=== PATIENT | female | born 1960 | race African-American/Black ===

== ENCOUNTER 2016-12-09 09:01 | Inpatient (IN) | payer MEDICAID, OTHER ==
[~2016-12-09] VITALS: Ht 170.2 cm; Wt 94.5 kg
[~2016-12-09 09:01] MED LIST: HYDR25TA PO; INSLAN SQ; INSNOV SQ; SIMV5TAB6 PO
[2016-12-09 09:50] LABS: BASOPHILS % (AUTO) 0.5 % (0.0-2.0); EOSINOPHILS % (AUTO) 2.3 % (1.0-6.0); HEMATOCRIT 37.5 % (36-46); HEMOGLOBIN 12.2 g/dL (12.0-16.0); LYMPHOCYTES # (AUTO) 3.2 K/uL (1.0-4.8); LYMPHOCYTES % (AUTO) 40.9 % (22.0-44.0); MEAN CORPUSCULAR HEMOGLOBIN 31.8 pg (26.0-34.0); MEAN CORPUSCULAR HGB CONC 32.5 G/dL (31.0-37.0); MEAN CORPUSCULAR VOLUME 98 fL (80-100); MONOCYTES % (AUTO) 12.4 % (2.0-9.0); NEUTROPHILS # (AUTO) 3.4 K/uL (1.8-7.7); NEUTROPHILS % (AUTO) 43.9 % (40.0-70.0); RED BLOOD CELL COUNT(AUTO) 3.83 MIL/uL (4.00-5.20); RED CELL DISTRIBUTION WIDTH 15.9 % (11.5-14.5); WHITE BLOOD COUNT (AUTO) 7.7 K/uL (4.5-11.0)
[2016-12-09 10:00] LABS: ANION GAP 6 mmol/L (8-16); CALCIUM, TOTAL 8.3 mg/dL (8.8-10.5); CARBON DIOXIDE 28 mmol/L (22-29); CHLORIDE 107 mmol/L (98-107); CREATININE 0.97 mg/dL (0.60-1.30); GLOMERULAR FILTR. RATE CALC > 60 mL/min (>60); POTASSIUM 3.8 mmol/L (3.5-5.1); SODIUM SERUM 141 mmol/L (136-145); UREA NITROGEN, BLOOD 22 mg/dL (7-18)
[2016-12-09 10:01] LABS: INR 1.3 (0.9-1.1); PROTHROMBIN TIME 13.8 SEC (9.4-11.6)
[2016-12-09 10:15] LABS: B-TYPE NATRIURETIC PEPTIDE 26 pg/mL (0-100)
[2016-12-09 10:20] LABS: PLATELET COUNT (AUTO) 78 K/uL (150-450)
[2016-12-09 10:21] LABS: RBC MORPHOLOGY COMMENT NORMAL RBC MORPH
[2016-12-09 10:25] LABS: ALANINE AMINOTRANSFERASE 162 U/L (12-78); ALBUMIN 1.9 g/dL (3.4-5.0); ASPARTATE AMINOTRANSFERASE 261 U/L (15-37); BILIRUBIN,TOTAL 1.7 mg/dL (0.1-1.0); CREATINE KINASE MB 2.1 ng/mL (0-5); CREATINE KINASE, TOTAL 368 U/L (26-192); TOTAL PROTEIN, SERUM 7.3 g/dL (6.4-8.2)
[2016-12-09] MEDS ORDERED: ONDANSETRON HCL 4 MG/2 ML VIAL IVP ONE (13:30)
[2016-12-09] MEDS ORDERED: MORPHINE SULFATE 4 MG/ML SYRINGE IVP ONE (13:30)
[2016-12-09] MEDS ORDERED: ACETAMINOPHEN 325 MG TABLET PO PRN (18:00)
[2016-12-09] MEDS ORDERED: SPIRONOLACTONE 50 MG TABLET PO SCH (18:00)
[2016-12-09] MEDS ORDERED: PANTOPRAZOLE SODIUM 40 MG DR TABLET PO SCH (18:00)
[2016-12-09 18:18] VITALS: BP 154/87
[2016-12-09] MEDS: FUROSEMIDE 20 MG TABLET PO SCH (20:15)
[2016-12-09] MEDS: DOCUSATE SODIUM 100 MG CAPSULE PO SCH (20:15)
[2016-12-09 20:59] VITALS: BP 157/70
[2016-12-09] MEDS ORDERED: INFLUENZA VIRUS VACCINE QVS 2016-17 (3YR+)/PF 60 MCG/0.5 ML SYRINGE IM ONE (22:45)
[2016-12-09] MEDS ORDERED: PNEUMOCOCCAL VACCINE POLYVALENT 0.5 ML VIAL [PPSV23] IM ONE (22:45)
[2016-12-09 23:22] VITALS: BP 143/75
[2016-12-10 04:11] VITALS: BP 140/72
[2016-12-10 06:11] LABS: ANION GAP 7 mmol/L (8-16); CARBON DIOXIDE 26 mmol/L (22-29); CHLORIDE 108 mmol/L (98-107); CREATININE 0.93 mg/dL (0.60-1.30); GLOMERULAR FILTR. RATE CALC > 60 mL/min (>60); POTASSIUM 3.9 mmol/L (3.5-5.1); SODIUM SERUM 141 mmol/L (136-145); UREA NITROGEN, BLOOD 18 mg/dL (7-18)
[2016-12-10 06:38] LABS: INR 1.4 (0.9-1.1); PROTHROMBIN TIME 14.4 SEC (9.4-11.6)
[2016-12-10 07:28] LABS: BASOPHILS # (AUTO) 0.04 K/uL (0.00-0.20); BASOPHILS % (AUTO) 0.6 % (0.0-2.0); EOSINOPHILS # (AUTO) 0.21 K/uL (0.00-0.70); EOSINOPHILS % (AUTO) 3.39 % (1.0-6.0); HEMATOCRIT 32.3 % (36-46); HEMOGLOBIN 10.9 g/dL (12.0-16.0); LYMPHOCYTES # (AUTO) 2.6 K/uL (1.0-4.8); LYMPHOCYTES % (AUTO) 41.9 % (22.0-44.0); MEAN CORPUSCULAR HEMOGLOBIN 32.7 pg (26.0-34.0); MEAN CORPUSCULAR HGB CONC 33.6 G/dL (31.0-37.0); MEAN CORPUSCULAR VOLUME 97 fL (80-100); MONOCYTES # (AUTO) 1.2 K/uL (0.1-1.0); MONOCYTES % (AUTO) 19.8 % (2.0-9.0); NEUTROPHILS # (AUTO) 2.1 K/uL (1.8-7.7); NEUTROPHILS % (AUTO) 34.3 % (40.0-70.0); PLATELET COUNT (AUTO) 60 K/uL (150-450); RED BLOOD CELL COUNT(AUTO) 3.32 MIL/uL (4.00-5.20); RED CELL DISTRIBUTION WIDTH 15.7 % (11.5-14.5); WHITE BLOOD COUNT (AUTO) 6.2 K/uL (4.5-11.0)
[2016-12-10 08:11] VITALS: BP 137/78
[2016-12-10] MEDS: DOCUSATE SODIUM 100 MG CAPSULE PO SCH ×2 (08:19→19:58)
[2016-12-10] MEDS: FUROSEMIDE 20 MG TABLET PO SCH ×2 (08:19→19:59)
[2016-12-10] MEDS ORDERED: DEXTROSE 50%-WATER 25 GM/50 ML SYRINGE IVP PRN (09:15)
[2016-12-10] MEDS ORDERED: ONDANSETRON HCL 4 MG/2 ML VIAL IVP PRN (09:15)
[2016-12-10] MEDS: ACETAMINOPHEN 325 MG TABLET PO PRN ×2 (10:41→19:58)
[2016-12-10] MEDS: LACTULOSE 20 GM/30 ML SOLUTION UDCUP PO SCH ×3 (10:42→23:49)
[2016-12-10 11:06] VITALS: BP 134/89
[2016-12-10 11:57] LABS: GLUCOSE,POINT OF CARE 172 MG/DL (70-110)
[2016-12-10] MEDS: INSULIN ASPART 100 UNITS/ML SQ PRN ×2 (12:20→20:04)
[2016-12-10 15:56] VITALS: BP 125/67
[2016-12-10 17:41] LABS: GLUCOSE,POINT OF CARE 136 MG/DL (70-110)
[2016-12-10 20:07] VITALS: BP 136/80
[2016-12-10 23:57] VITALS: BP 145/80
[2016-12-11 04:00] VITALS: BP 135/76
[2016-12-11 06:02] LABS: GLUCOSE COMMENT 1 Received Meds; GLUCOSE,POINT OF CARE 198 MG/DL (70-110)
[2016-12-11 06:07] LABS: GLUCOSE,POINT OF CARE 123 MG/DL (70-110)
[2016-12-11 07:30] VITALS: BP 140/86
[2016-12-11] MEDS: DOCUSATE SODIUM 100 MG CAPSULE PO SCH (08:35)
[2016-12-11] MEDS: LACTULOSE 20 GM/30 ML SOLUTION UDCUP PO SCH (08:35)
[2016-12-11] MEDS: FUROSEMIDE 20 MG TABLET PO SCH (08:35)
[2016-12-11] MEDS ORDERED: PANTOPRAZOLE SODIUM 40 MG DR TABLET PO SCH (09:00)
[2016-12-11 11:24] VITALS: BP 145/84
[2016-12-11] MEDS: INSULIN ASPART 100 UNITS/ML SQ PRN (11:34)
[2016-12-11 11:41] LABS: GLUCOSE COMMENT 1 Received Meds; GLUCOSE,POINT OF CARE 192 MG/DL (70-110)
[2016-12-11] MEDS ORDERED: GLIP5 PO (11:57)
[2016-12-11] MEDS ORDERED: SPIR50 PO (11:58)
[2016-12-11] MEDS ORDERED: FURO20 PO (11:58)
[2016-12-11] MEDS ORDERED: LACT30L PO (11:58)
== END 2016-12-11 13:00 | disposition home or self-care (01) | DRG 264 ==
LOC: EMS 09:02 → 6N 17:29
PROVIDERS: ADMIT Internal Medicine; ATTEND Internal Medicine
PROC: 3E0234Z Introduction of Serum, Toxoid and Vaccine into Muscle, Percutaneous Approach (ICD-10-PCS; 2016-12-10)
PROC: 0W9G3ZX Drainage of Peritoneal Cavity, Percutaneous Approach, Diagnostic (ICD-10-PCS; principal; 2016-12-11)
DX: K70.31 Alcoholic cirrhosis of liver with ascites (principal); E43 Unspecified severe protein-calorie malnutrition; D69.6 Thrombocytopenia, unspecified; K72.90 Hepatic failure, unspecified without coma; I51.9 Heart disease, unspecified; R79.1 Abnormal coagulation profile; I10 Essential (primary) hypertension; E78.00 Pure hypercholesterolemia, unspecified; E11.9 Type 2 diabetes mellitus without complications; F17.210 Nicotine dependence, cigarettes, uncomplicated; Z68.32 Body mass index [BMI] 32.0-32.9, adult; Z79.899 Other long term (current) drug therapy; Z79.4 Long term (current) use of insulin; Z90.49 Acquired absence of other specified parts of digestive tract; Z88.6 Allergy status to analgesic agent; Z91.19 Patient's noncompliance with other medical treatment and regimen; Z82.49 Family history of ischemic heart disease and other diseases of the circulatory system; Z23 Encounter for immunization
CPT/HCPCS: 49083; 76700; 76942; 82962; 87070; 87205; 88108; 88341; 88342; 90471; 93005; 99285; G0480; J2270; J2405

== ENCOUNTER 2017-02-11 16:39 | Emergency (ER) | payer MEDICAID, OTHER ==
[~2017-02-11] VITALS: Ht 170.2 cm; Wt 75.0 kg
[~2017-02-11 16:39] MED LIST changes: +FURO20 PO; +GLIP5 PO; -HYDR25TA PO; -INSLAN SQ; -INSNOV SQ; +LACT30L PO; -SIMV5TAB6 PO; +SPIR50 PO
[2017-02-11] MEDS ORDERED: INSLAN SQ (16:54)
[2017-02-11] MEDS ORDERED: SIMV-260 PO (16:54)
[2017-02-11] MEDS ORDERED: INSNOV SQ (16:54)
[2017-02-11] MEDS ORDERED: SUCR1TAB PO (16:54)
[2017-02-11] MEDS ORDERED: ONDANSETRON HCL 4 MG/2 ML VIAL IVP ONE (17:00)
[2017-02-11] MEDS ORDERED: MORPHINE SULFATE 4 MG/ML SYRINGE IVP ONE (17:00)
[2017-02-11 17:02] LABS: GLUCOSE,POINT OF CARE 157 MG/DL (70-110)
[2017-02-11 17:19] LABS: BASOPHILS # (AUTO) 0.04 K/uL (0.00-0.20); BASOPHILS % (AUTO) 0.6 % (0.0-2.0); EOSINOPHILS # (AUTO) 0.19 K/uL (0.00-0.70); EOSINOPHILS % (AUTO) 3.02 % (1.0-6.0); HEMATOCRIT 34.7 % (36-46); HEMOGLOBIN 11.5 g/dL (12.0-16.0); LYMPHOCYTES # (AUTO) 2.6 K/uL (1.0-4.8); LYMPHOCYTES % (AUTO) 42.7 % (22.0-44.0); MEAN CORPUSCULAR HEMOGLOBIN 32.5 pg (26.0-34.0); MEAN CORPUSCULAR HGB CONC 33.2 G/dL (31.0-37.0); MEAN CORPUSCULAR VOLUME 98 fL (80-100); MONOCYTES # (AUTO) 1.1 K/uL (0.1-1.0); MONOCYTES % (AUTO) 17.6 % (2.0-9.0); NEUTROPHILS # (AUTO) 2.2 K/uL (1.8-7.7); NEUTROPHILS % (AUTO) 36.1 % (40.0-70.0); RED BLOOD CELL COUNT(AUTO) 3.54 MIL/uL (4.00-5.20); RED CELL DISTRIBUTION WIDTH 16.6 % (11.5-14.5); WHITE BLOOD COUNT (AUTO) 6.2 K/uL (4.5-11.0)
[2017-02-11 17:28] LABS: ANION GAP 4 mmol/L (8-16); CALCIUM, TOTAL 8.2 mg/dL (8.8-10.5); CARBON DIOXIDE 30 mmol/L (22-29); CHLORIDE 104 mmol/L (98-107); CREATININE 1.01 mg/dL (0.60-1.30); GLOMERULAR FILTR. RATE CALC > 60 mL/min (>60); POTASSIUM 3.8 mmol/L (3.5-5.1); SODIUM SERUM 138 mmol/L (136-145); UREA NITROGEN, BLOOD 18 mg/dL (7-18)
[2017-02-11 17:33] LABS: ALANINE AMINOTRANSFERASE 92 U/L (12-78); ALBUMIN 2.1 g/dL (3.4-5.0); ASPARTATE AMINOTRANSFERASE 182 U/L (15-37); BILIRUBIN,TOTAL 1.3 mg/dL (0.1-1.0); TOTAL PROTEIN, SERUM 6.5 g/dL (6.4-8.2)
[2017-02-11 17:42] LABS: PLATELET COUNT (AUTO) 72 K/uL (150-450); RBC MORPHOLOGY COMMENT ABNORMAL RBC MORPH
[2017-02-11 19:04] LABS: APPEARANCE,URINE CLEAR (CLEAR); GLUCOSE, URINE (UA) NEGATIVE (NEGATIVE); KETONES,URINE NEGATIVE (NEGATIVE); LEUKOCYTE ESTERASE ,URINE NEGATIVE (NEGATIVE); OCCULT BLOOD,URINE SMALL (NEGATIVE); PROTEIN,URINE SEE CONFIRM (NEGATIVE)
[2017-02-11 19:06] LABS: ADD UA MICROSCOPIC YES
[2017-02-11 19:07] LABS: SQUAMOUS EPITHELIAL CELL,UR Few /LPF (None Seen); SULFOSALICYLIC ACID,URINE 2+ (Negative); WBC,URINE 0-2 /HPF (0-5)
[2017-02-11 22:37] VITALS: BP 149/62
== END 2017-02-11 22:40 | disposition home or self-care (01) ==
LOC: EMS 16:40
DX: N83.202 Unspecified ovarian cyst, left side (principal); F14.10 Cocaine abuse, uncomplicated; F17.210 Nicotine dependence, cigarettes, uncomplicated; E11.9 Type 2 diabetes mellitus without complications; I11.9 Hypertensive heart disease without heart failure; E78.00 Pure hypercholesterolemia, unspecified; Z88.6 Allergy status to analgesic agent
CPT/HCPCS: 36415; 76856; 80053; 80307; 81001; 81002; 82962; 85025; 87210; 96374; 96375; 99285; 99406; J2270; J2405

== ENCOUNTER 2017-02-12 17:53 | Emergency (ER) | payer OTHER ==
[~2017-02-12] VITALS: Ht 170.2 cm; Wt 77.2 kg
[~2017-02-12 17:53] MED LIST changes: -GLIP5 PO; +INSLAN SQ; +INSNOV SQ; -LACT30L PO; +SIMV-260 PO; -SPIR50 PO; +SUCR1TAB PO
[2017-02-12 18:16] LABS: GLUCOSE,POINT OF CARE 310 MG/DL (70-110)
[2017-02-12 19:19] LABS: BASOPHILS % (AUTO) 0.8 % (0.0-2.0); EOSINOPHILS % (AUTO) 2.8 % (1.0-6.0); HEMATOCRIT 35.9 % (36-46); HEMOGLOBIN 11.5 g/dL (12.0-16.0); LYMPHOCYTES # (AUTO) 2.6 K/uL (1.0-4.8); LYMPHOCYTES % (AUTO) 43.9 % (22.0-44.0); MEAN CORPUSCULAR HEMOGLOBIN 31.8 pg (26.0-34.0); MEAN CORPUSCULAR HGB CONC 31.9 G/dL (31.0-37.0); MEAN CORPUSCULAR VOLUME 100 fL (80-100); MONOCYTES % (AUTO) 16.9 % (2.0-9.0); NEUTROPHILS # (AUTO) 2.1 K/uL (1.8-7.7); NEUTROPHILS % (AUTO) 35.6 % (40.0-70.0); PLATELET COUNT (AUTO) 73 K/uL (150-450); RBC MORPHOLOGY COMMENT ABNORMAL RBC MORPH; RED BLOOD CELL COUNT(AUTO) 3.61 MIL/uL (4.00-5.20); RED CELL DISTRIBUTION WIDTH 17.2 % (11.5-14.5)
[2017-02-12 19:29] LABS: CALCIUM, TOTAL 8.4 mg/dL (8.8-10.5); CREATININE 1.43 mg/dL (0.60-1.30); POTASSIUM 4.1 mmol/L (3.5-5.1)
[2017-02-12 19:47] LABS: ALBUMIN 2.3 g/dL (3.4-5.0); BILIRUBIN,TOTAL 1.4 mg/dL (0.1-1.0); TOTAL PROTEIN, SERUM 6.8 g/dL (6.4-8.2)
[2017-02-12] MEDS ORDERED: ONDANSETRON HCL 4 MG/2 ML VIAL IM ONE (21:45)
[2017-02-12] MEDS ORDERED: HYDROmorphone 2 MG/ML SYRINGE IM ONE (21:45)
[2017-02-12 22:30] VITALS: BP 129/75
== END 2017-02-12 23:50 | disposition home or self-care (01) ==
LOC: EMS 17:55
DX: N83.202 Unspecified ovarian cyst, left side (principal); N95.0 Postmenopausal bleeding; K70.30 Alcoholic cirrhosis of liver without ascites; D61.818 Other pancytopenia; N93.9 Abnormal uterine and vaginal bleeding, unspecified; I11.9 Hypertensive heart disease without heart failure; E78.00 Pure hypercholesterolemia, unspecified; E11.9 Type 2 diabetes mellitus without complications; F17.210 Nicotine dependence, cigarettes, uncomplicated; Z79.4 Long term (current) use of insulin; Z88.6 Allergy status to analgesic agent
CPT/HCPCS: 36415; 80053; 82962; 85025; 86850; 86900; 86901; 96372; 99284; J1170; J2405

== ENCOUNTER 2017-12-16 01:45 | Emergency (ER) | payer OTHER ==
[~2017-12-16] VITALS: Ht 170.2 cm; Wt 68.0 kg
[~2017-12-16 01:45] MED LIST changes: -FURO20 PO; -INSNOV SQ; +PANT40TA25 PO
[2017-12-16 02:49] LABS: CALCIUM, TOTAL 8.6 mg/dL (8.8-10.5); CREATININE 1.13 mg/dL (0.60-1.30); POTASSIUM 4.7 mmol/L (3.5-5.1)
[2017-12-16 02:54] LABS: ALBUMIN 2.3 g/dL (3.4-5.0); BILIRUBIN,TOTAL 0.7 mg/dL (0.1-1.0); TOTAL PROTEIN, SERUM 6.6 g/dL (6.4-8.2)
[2017-12-16 03:06] LABS: EOSINOPHILS % (AUTO) 3.9 % (1.0-6.0); HEMATOCRIT 28.1 % (36-46); HEMOGLOBIN 9.5 g/dL (12.0-16.0); LYMPHOCYTES # (AUTO) 1.4 K/uL (1.0-4.8); LYMPHOCYTES % (AUTO) 34.8 % (22.0-44.0); MEAN CORPUSCULAR HEMOGLOBIN 31.1 pg (26.0-34.0); MEAN CORPUSCULAR HGB CONC 33.7 G/dL (31.0-37.0); MEAN CORPUSCULAR VOLUME 92 fL (80-100); MONOCYTES # (AUTO) 0.6 K/uL (0.1-1.0); MONOCYTES % (AUTO) 15.8 % (2.0-9.0); NEUTROPHILS # (AUTO) 1.8 K/uL (1.8-7.7); NEUTROPHILS % (AUTO) 44.5 % (40.0-70.0); PLATELET COUNT (AUTO) 70 K/uL (150-450); RED BLOOD CELL COUNT(AUTO) 3.04 MIL/uL (4.00-5.20); RED CELL DISTRIBUTION WIDTH 13.5 % (11.5-14.5)
[2017-12-16 03:10] VITALS: BP 152/88
[2017-12-16 03:16] LABS: INR 1.2 (0.9-1.1); PROTHROMBIN TIME 12.3 SEC (9.4-11.6)
[2017-12-16 14:05] LABS: GLUCOSE,POINT OF CARE 301 MG/DL (70-110)
== END 2017-12-16 03:55 | disposition home or self-care (01) ==
LOC: EMS 01:45
DX: R18.8 Other ascites (principal); I11.9 Hypertensive heart disease without heart failure; E78.00 Pure hypercholesterolemia, unspecified; E11.9 Type 2 diabetes mellitus without complications; F17.210 Nicotine dependence, cigarettes, uncomplicated; Z88.6 Allergy status to analgesic agent; Z88.8 Allergy status to other drugs, medicaments and biological substances
CPT/HCPCS: 82962; 93005; 99285